=== PATIENT | female | born 1985 | race Hispanic/Latino ===

== ENCOUNTER 2022-12-05 08:09 | Inpatient (IN) | payer OTHER, SELFPAY ==
[2022-12-05] MEDS ORDERED: Electrolyte Replacement Protocol 1 EACH IVPB ONE (09:59)
[2022-12-05] MEDS ORDERED: Dextrose 5 %-0.45 % NaCl 1,000 ML IV PRN (09:59)
[2022-12-05] MEDS ORDERED: NS 0.9% w/ 20 MEQ KCL 1,000 ML IV PRN (09:59)
[2022-12-05] MEDS ORDERED: Dextrose 50% Abboject 50 ML SYRINGE SLOW IVP PRN (09:59)
[2022-12-05] MEDS ORDERED: Sodium Chloride 0.9% 1,000 ML IV PRN ×3 (09:59)
[2022-12-05] MEDS ORDERED: HUMULIN R 100 UNITS in Sodium Chloride 0.9% 100 ML IVPB SCH (10:00)
[2022-12-05 10:56] LABS: Anion Gap 21 mmol/L (10-20); BUN (Urea Nitrogen) 14 mg/dL (7.0-18.7); Calc. Creatinine Clearance 0 mL/min (70-130); Calcium 8.3 mg/dL (7.8-10.44); Chloride 107 mmol/L (98-107); Estimated GFR 60; Glucose 317 mg/dL (70-105); Magnesium 1.8 mg/dL (1.6-2.6); Sodium 133 mmol/L (136-145)
[2022-12-05 11:07] LABS: Carbon Dioxide 9 mmol/L (22-29)
[2022-12-05] MEDS ORDERED: Electrolyte Replacement Protocol FS PRN (12:00)
[2022-12-05] MEDS ORDERED: Magnesium 2 GM/50 ML(in water) 2 GM in Premix Bag 1 BAG IVPB SCH (12:00)
[2022-12-05] MEDS: Acetaminophen 325 MG TAB PO PRN ×2 (12:05→20:11)
[2022-12-05] MEDS: D5 1/2 NS w/20 mEq KCL 1,000 ML IV PRN ×3 (12:09→20:12)
[2022-12-05 12:37] LABS: Bacteria/HPF 1+ HPF (None Seen); Bilirubin Negative (Negative); Blood, Urine Trace (Negative); Clarity Clear (Clear); Glucose, Urine (Dipstick) Greater than 1000 mg/dL (Negative); Ketone, Urine Greater than 150 mg/dL (Negative); Leukocyte 25 Leu/uL (Negative); Nitrite Negative (Negative); Protein, Urine (Dipstick) 30 mg/dL (Neg-Trace); RBC/HPF 0-3 HPF (0-3); Specific Gravity, Urine 1.017 (1.002-1.036); Squamous Epithelial 0-3 HPF (0-3); Urobilinogen Normal mg/dL (Less than 2); pH, Urine 5.5 (5.0-9.0)
[2022-12-05] MEDS: Sodium Chloride 0.9% 1,000 ML IV SCH ×3 (12:41→22:26)
[2022-12-05 12:43] LABS: Amphetamine Not Detected (NotDetected); Barbiturates Screen Not Detected (NotDetected); Benzodiazepine Screen Not Detected (NotDetected); Cocaine Metabolite Screen Not Detected (NotDetected); Methadone Not Detected (NotDetected); Methamphetamine Not Detected (NotDetected); Opiate Screen Not Detected (NotDetected); Oxycodone Screen Not Detected (NotDetected); Phencyclidine (PCP) Not Detected (NotDetected); THC/Cannabinoid Screen Detected (NotDetected); Tricyclic Screen Not Detected (NotDetected)
[2022-12-05 14:55] LABS: Anion Gap 13 mmol/L (10-20); BUN (Urea Nitrogen) 10 mg/dL (7.0-18.7); Calc. Creatinine Clearance 46 mL/min (70-130); Calcium 7.6 mg/dL (7.8-10.44); Carbon Dioxide 13 mmol/L (22-29); Chloride 107 mmol/L (98-107); Estimated GFR 75; Glucose 311 mg/dL (70-105); Potassium 4.2 mmol/L (3.5-5.1); Sodium 129 mmol/L (136-145)
[2022-12-05 15:08] LABS: Phosphorus Less than 1.0 mg/dL (2.3-4.7)
[2022-12-05] MEDS ORDERED: Sodium Phosphate 30 MMOL in Sodium Chloride 0.9% 250 ML 250 ML IVPB SCH (15:15)
[2022-12-05 18:34] LABS: HIV (1/2) Antibody/Antigen Non-Reactive (NonReactive)
[2022-12-05 19:14] LABS: Anion Gap 11 mmol/L (10-20); BUN (Urea Nitrogen) 7 mg/dL (7.0-18.7); Calc. Creatinine Clearance 55 mL/min (70-130); Calcium 7.6 mg/dL (7.8-10.44); Carbon Dioxide 16 mmol/L (22-29); Chloride 106 mmol/L (98-107); Estimated GFR 92; Glucose 200 mg/dL (70-105); Potassium 3.4 mmol/L (3.5-5.1); Sodium 130 mmol/L (136-145)
[2022-12-05] MEDS: Potassium Chloride 20 MEQ in Premix Bag 1 BAG IVPB SCH ×2 (20:53→22:26)
[2022-12-05] MEDS ORDERED: Ketorolac Tromethamine 30 MG/ML VIAL IVP SCH (21:00)
[2022-12-05] MEDS ORDERED: HumaLOG 300 UNITS/3 ML VIAL SC PRN (21:51)
[2022-12-05] MEDS ORDERED: Dextrose 5% in Water 1,000 ML IV PRN (21:51)
[2022-12-05] MEDS ORDERED: Glucagon 1 MG/ML KIT IM PRN (21:51)
[2022-12-06] MEDS: Ondansetron PF 4 MG/2 ML Vial IVP PRN (01:12)
[2022-12-06] MEDS: Ketorolac Tromethamine 30 MG/ML VIAL IVP PRN ×2 (01:12→12:26)
[2022-12-06 04:58] LABS: Anion Gap 17 mmol/L (10-20); BUN (Urea Nitrogen) 5 mg/dL (7.0-18.7); Calc. Creatinine Clearance 62 mL/min (70-130); Carbon Dioxide 13 mmol/L (22-29); Chloride 105 mmol/L (98-107); Potassium 3.8 mmol/L (3.5-5.1); Sodium 131 mmol/L (136-145)
[2022-12-06 04:59] LABS: Calcium 7.3 mg/dL (7.8-10.44); Estimated GFR 107; Glucose 283 mg/dL (70-105); Lipase Less than 4 U/L (8-78)
[2022-12-06] MEDS: Sodium Chloride 0.9% 1,000 ML IV SCH ×3 (05:14→14:11)
[2022-12-06 05:38] LABS: Hemoglobin 9.3 g/dL (12.0-16.0); Mean Corpuscular HGB CONC 32.1 g/dL (32.0-36.0); Mean Corpuscular Hemoglobin 29.3 pg (27.0-31.0); Mean Corpuscular Volume 91.5 fl (78.0-98.0); Mean Platelet Volume 10.2 fL (7.4-10.4); Platelet Count 273 10x3/uL (130-400); RBC Distribution Width 13.2 % (11.5-14.5); Red Blood Cell (RBC) Count 3.17 mill/uL (4.20-5.40); White Blood Cell (WBC) Count 11.6 10x3/uL (4.8-10.8)
[2022-12-06] MEDS ORDERED: Sodium Bicarb 50 MEQ/50 ML VIAL IVP SCH (06:00)
[2022-12-06] MEDS: HumaLOG 300 UNITS/3 ML VIAL SC PRN ×3 (06:57→17:05)
[2022-12-06] MEDS ORDERED: Sodium Bicarbonate 150 MEQ in Dextrose 5% in Water 1,000 ML IV SCH (07:00)
[2022-12-06] MEDS: Insulin Glargine 30 UNITS/0.3 ML VIAL SC SCH (07:33)
[2022-12-06] MEDS ORDERED: Magnesium 2 GM/50 ML(in water) 2 GM in Premix Bag 1 BAG IVPB SCH (08:00)
[2022-12-06 08:32] LABS: Anion Gap 11 mmol/L (10-20); BUN (Urea Nitrogen) 5 mg/dL (7.0-18.7); Calc. Creatinine Clearance 66 mL/min (70-130); Calcium 7.6 mg/dL (7.8-10.44); Carbon Dioxide 16 mmol/L (22-29); Chloride 109 mmol/L (98-107); Estimated GFR 109; Glucose 182 mg/dL (70-105); Potassium 3.2 mmol/L (3.5-5.1); Sodium 133 mmol/L (136-145)
[2022-12-06] MEDS ORDERED: Pantoprazole 40 MG VIAL IVP SCH (09:00)
[2022-12-06] MEDS ORDERED: Potassium Chloride 20 MEQ TAB PO SCH (09:45)
[2022-12-06] MEDS ORDERED: Iopamidol-370 76% 500 ML MDV (1 ML CHARGE) ONE (10:31)
[2022-12-06] MEDS ORDERED: Phenylephrine 10 MG/ML VIAL ONE (14:08)
[2022-12-06] MEDS: traMADol HCl 50 MG TAB PO PRN (14:10)
[2022-12-06] MEDS ORDERED: Lorazepam 2 MG/ML VIAL ONE (17:44)
[2022-12-06] MEDS ORDERED: Lorazepam 2 MG/ML VIAL SLOW IVP SCH (17:45)
[2022-12-06] MEDS ORDERED: levETIRAcetam 500 MG/5 ML VIAL SLOW IVP SCH (18:00)
[2022-12-06] MEDS: Pregabalin 50 MG CAP PO SCH (20:09)
[2022-12-06] MEDS: Acyclovir 400 mg Tablet PO SCH (20:10)
[2022-12-06] MEDS: OXcarbazepine 300 MG TAB PO SCH (20:10)
[2022-12-07] MEDS: Sodium Chloride 0.9% 1,000 ML IV SCH ×3 (05:15→14:16)
[2022-12-07] MEDS: HumaLOG 300 UNITS/3 ML VIAL SC PRN ×2 (06:02→12:25)
[2022-12-07 06:20] LABS: #Eosinphils 0.1 thou/uL (0.0-0.7); #Neutrophils 4.4 thou/uL (1.40-6.50); %Basophils 0.6 % (0.0-1.0); %Eosinophils 2.1 % (0.0-10.0); %Lymphocytes 15.4 % (21.0-51.0); %Monocytes 14.9 % (0.0-10.0); %Neutrophils 66.1 % (42.0-75.0); Hematocrit 26.9 % (36.0-47.0); Hemoglobin 8.7 g/dL (12.0-16.0); Mean Corpuscular HGB CONC 32.3 g/dL (32.0-36.0); Mean Corpuscular Hemoglobin 29.3 pg (27.0-31.0); Mean Corpuscular Volume 90.6 fl (78.0-98.0); Mean Platelet Volume 10.1 fL (7.4-10.4); Platelet Count 263 10x3/uL (130-400); RBC Distribution Width 13.2 % (11.5-14.5); Red Blood Cell (RBC) Count 2.97 mill/uL (4.20-5.40); White Blood Cell (WBC) Count 6.7 10x3/uL (4.8-10.8)
[2022-12-07 06:54] LABS: ALT (SGPT) 52 U/L (8-55); AST (SGOT) 82 U/L (5-34); Albumin 2.6 g/dL (3.5-5.0); Alkaline Phosphatase 197 U/L (40-110); Anion Gap 9 mmol/L (10-20); BUN (Urea Nitrogen) 5 mg/dL (7.0-18.7); Bilirubin, Total Less than 0.2 mg/dL (0.2-1.2); Calc. Creatinine Clearance 92 mL/min (70-130); Calcium 7.2 mg/dL (7.8-10.44); Carbon Dioxide 22 mmol/L (22-29); Chloride 106 mmol/L (98-107); Estimated GFR 123; Globulin 2.8 g/dL (2.4-3.5); Glucose 195 mg/dL (70-105); Magnesium 2.3 mg/dL (1.6-2.6); Potassium 3.3 mmol/L (3.5-5.1); Protein, Total 5.4 g/dL (6.0-8.3); Sodium 134 mmol/L (136-145)
[2022-12-07 07:02] LABS: Phosphorus Less than 1.0 mg/dL (2.3-4.7)
[2022-12-07] MEDS: Pancrelipase DR 12,000 1 CAP PO SCH ×3 (07:53→17:05)
[2022-12-07] MEDS: FLUoxetine HCl 20 MG CAP PO SCH (07:53)
[2022-12-07] MEDS: Pregabalin 50 MG CAP PO SCH ×2 (07:53→20:44)
[2022-12-07] MEDS: Insulin Glargine 30 UNITS/0.3 ML VIAL SC SCH ×2 (07:54→20:45)
[2022-12-07] MEDS: Acyclovir 400 mg Tablet PO SCH ×2 (07:54→20:45)
[2022-12-07] MEDS: OXcarbazepine 300 MG TAB PO SCH ×2 (07:54→20:45)
[2022-12-07] MEDS ORDERED: Potassium Chloride 20 MEQ TAB PO SCH (08:00)
[2022-12-07] MEDS ORDERED: levETIRAcetam 500 MG/5 ML VIAL SLOW IVP SCH (09:00)
[2022-12-07] MEDS ORDERED: Iopamidol-370 76% 500 ML MDV (1 ML CHARGE) ONE (09:00)
[2022-12-07] MEDS ORDERED: K-Phos Neutral 250 MG TAB PO SCH (09:15)
[2022-12-07] MEDS: traMADol HCl 50 MG TAB PO PRN (09:20)
[2022-12-07] MEDS ORDERED: LevoFLOXacin 500 MG TAB PO SCH ×2 (10:30→10:45)
[2022-12-07] MEDS: K-Phos Neutral 250 MG TAB PO SCH ×2 (11:57→17:05)
[2022-12-07] MEDS: levETIRAcetam 500 MG TAB PO SCH (20:44)
[2022-12-07] MEDS ORDERED: Non-Formulary Item 1 EACH (Levetiracetam [Keppra] 1,000 MG Tablet) PO SCH (21:00)
[2022-12-08 04:41] LABS: ALT (SGPT) 79 U/L (8-55); AST (SGOT) 111 U/L (5-34); Albumin 2.6 g/dL (3.5-5.0); Alkaline Phosphatase 258 U/L (40-110); Anion Gap 11 mmol/L (10-20); BUN (Urea Nitrogen) 5 mg/dL (7.0-18.7); Bilirubin, Total 0.2 mg/dL (0.2-1.2); Calc. Creatinine Clearance 100 mL/min (70-130); Calcium 7.4 mg/dL (7.8-10.44); Carbon Dioxide 24 mmol/L (22-29); Chloride 104 mmol/L (98-107); Estimated GFR 126; Globulin 2.7 g/dL (2.4-3.5); Glucose 139 mg/dL (70-105); Phosphorus 1.8 mg/dL (2.3-4.7); Potassium 3.2 mmol/L (3.5-5.1); Protein, Total 5.3 g/dL (6.0-8.3); Sodium 136 mmol/L (136-145)
[2022-12-08] MEDS: Sodium Chloride 0.9% 1,000 ML IV SCH ×2 (05:33→08:17)
[2022-12-08] MEDS: LevoFLOXacin 500 MG TAB PO SCH (05:33)
[2022-12-08] MEDS: Acetaminophen 325 MG TAB PO PRN ×2 (06:27→20:36)
[2022-12-08] MEDS ORDERED: Potassium Bicarbonate/Cit Ac 20 MEQ TAB PO SCH (08:00)
[2022-12-08] MEDS: Acyclovir 400 mg Tablet PO SCH ×2 (08:17→20:35)
[2022-12-08] MEDS: K-Phos Neutral 250 MG TAB PO SCH ×3 (08:17→16:01)
[2022-12-08] MEDS: Pregabalin 50 MG CAP PO SCH ×2 (08:17→20:36)
[2022-12-08] MEDS: levETIRAcetam 500 MG TAB PO SCH ×2 (08:17→20:35)
[2022-12-08] MEDS: Insulin Glargine 30 UNITS/0.3 ML VIAL SC SCH ×2 (08:17→20:39)
[2022-12-08] MEDS: FLUoxetine HCl 20 MG CAP PO SCH (08:18)
[2022-12-08] MEDS: Pancrelipase DR 12,000 1 CAP PO SCH ×3 (08:18→16:05)
[2022-12-08] MEDS: OXcarbazepine 300 MG TAB PO SCH ×2 (08:43→20:35)
[2022-12-08] MEDS: traMADol HCl 50 MG TAB PO PRN (12:15)
[2022-12-08] MEDS: HumaLOG 300 UNITS/3 ML VIAL SC PRN (12:16)
[2022-12-08] MEDS ORDERED: Potassium Phosphate 15 MMOL in Sodium Chloride 0.9% 100 ML IVPB SCH (13:30)
[2022-12-08] MEDS ORDERED: Diphenoxylate HCl/Atropine Tablet PO PRN (14:40)
[2022-12-08] MEDS ORDERED: Diphenoxylate HCl/Atropine Tablet PO SCH (14:45)
[2022-12-08 17:38] LABS: Bacteria/HPF None Seen HPF (None Seen); Bilirubin Negative (Negative); Blood, Urine Trace (Negative); CAUTI Indications for Culture Dysuria,urgency,freq; Clarity Clear (Clear); Glucose, Urine (Dipstick) 300 mg/dL (Negative); Ketone, Urine Negative (Negative); Leukocyte 75 Leu/uL (Negative); Nitrite Negative (Negative); Protein, Urine (Dipstick) Negative (Neg-Trace); RBC/HPF 0-3 HPF (0-3); Specific Gravity, Urine 1.012 (1.002-1.036); Squamous Epithelial 0-3 HPF (0-3); Transitional Epithelial 0-3 HPF (None Seen)
[2022-12-08 17:39] LABS: Urine Culture Reflex No No
[2022-12-08] MEDS: Ondansetron PF 4 MG/2 ML Vial IVP PRN (19:30)
[2022-12-08] MEDS ORDERED: Metoclopramide HCl 10 MG/2 ML VIAL IVP SCH (22:45)
[2022-12-08] MEDS: Ketorolac Tromethamine 30 MG/ML VIAL IVP SCH (23:50)
[2022-12-09 04:47] LABS: #Eosinphils 0.2 thou/uL (0.0-0.7); #Monocytes 0.8 thou/uL (0.11-0.59); #Neutrophils 4.2 thou/uL (1.40-6.50); %Basophils 0.5 % (0.0-1.0); %Eosinophils 2.4 % (0.0-10.0); %Lymphocytes 20.5 % (21.0-51.0); %Monocytes 12.7 % (0.0-10.0); %Neutrophils 63.4 % (42.0-75.0); Hematocrit 26.3 % (36.0-47.0); Hemoglobin 8.4 g/dL (12.0-16.0); Mean Corpuscular HGB CONC 31.9 g/dL (32.0-36.0); Mean Corpuscular Hemoglobin 28.7 pg (27.0-31.0); Mean Corpuscular Volume 89.8 fl (78.0-98.0); Platelet Count 277 10x3/uL (130-400); RBC Distribution Width 13.2 % (11.5-14.5); Red Blood Cell (RBC) Count 2.93 mill/uL (4.20-5.40); White Blood Cell (WBC) Count 6.6 10x3/uL (4.8-10.8)
[2022-12-09] MEDS: Sodium Chloride 0.9% 1,000 ML IV SCH ×2 (04:52→12:00)
[2022-12-09] MEDS: LevoFLOXacin 500 MG TAB PO SCH (05:22)
[2022-12-09 06:33] LABS: Anion Gap 9 mmol/L (10-20); BUN (Urea Nitrogen) 5 mg/dL (7.0-18.7); Calc. Creatinine Clearance 99 mL/min (70-130); Calcium 7.9 mg/dL (7.8-10.44); Carbon Dioxide 28 mmol/L (22-29); Chloride 103 mmol/L (98-107); Estimated GFR 122; Glucose 73 mg/dL (70-105); Phosphorus 3.5 mg/dL (2.3-4.7); Potassium 3.1 mmol/L (3.5-5.1); Sodium 137 mmol/L (136-145)
[2022-12-09] MEDS: Pregabalin 50 MG CAP PO SCH (07:51)
[2022-12-09] MEDS: levETIRAcetam 500 MG TAB PO SCH (07:51)
[2022-12-09] MEDS: FLUoxetine HCl 20 MG CAP PO SCH (07:51)
[2022-12-09] MEDS: OXcarbazepine 300 MG TAB PO SCH (07:52)
[2022-12-09] MEDS: Pancrelipase DR 12,000 1 CAP PO SCH ×3 (07:52→16:19)
[2022-12-09] MEDS: K-Phos Neutral 250 MG TAB PO SCH ×3 (07:52→16:40)
[2022-12-09] MEDS: Acyclovir 400 mg Tablet PO SCH (07:52)
[2022-12-09] MEDS: Insulin Glargine 30 UNITS/0.3 ML VIAL SC SCH ×2 (07:53→21:42)
[2022-12-09] MEDS ORDERED: Potassium Chloride 20 MEQ TAB PO SCH (08:00)
[2022-12-09] MEDS: HumaLOG 300 UNITS/3 ML VIAL SC PRN ×2 (11:57→16:40)
[2022-12-09] MEDS: Acetaminophen 325 MG TAB PO PRN (11:57)
[2022-12-09] MEDS ORDERED: Piperacillin/Tazobactam 3.375 GM in Sodium Chloride 0.9% 100 ML IVPB SCH (12:00)
[2022-12-09] MEDS: Piperacillin/Tazobactam 3.375 GM in Sodium Chloride 0.9% 100 ML IVPB SCH (16:19)
[2022-12-09] MEDS: Lorazepam 2 MG/ML VIAL ONE ×2 (20:15→21:47)
[2022-12-09] MEDS ORDERED: levETIRAcetam 500 MG/5 ML VIAL SLOW IVP SCH (20:15)
[2022-12-09] MEDS ORDERED: Propofol 1,000 MG/100 ML VIAL IV ONE (20:45)
[2022-12-09] MEDS ORDERED: levETIRAcetam 500 MG TAB PER TUBE SCH (21:00)
[2022-12-09 21:37] LABS: Actual Bicarbonate (HCO3a) 28.2 mEq/L (22-28); Base Excess (BEa) 4.4 mEq/L (-2.0 to +3.0); Calcium, Ionized (arterial) 1.07 mmol/L (1.12-1.30); Carboxyhemoglobin (COHb) 0.2 gm% (0.0-3.0); Hematocrit-ABG 29 % (36.0-47.0); O2 Tension (PaO2), arterial 142.7 mmHg (80.0-100.0); Potassium - ABG Lab 4.24 mmol/L (3.70-5.30); pH, Arterial 7.477 (7.35-7.45)
[2022-12-09 21:43] LABS: Puncture Site RBR
[2022-12-09] MEDS: Lorazepam 2 MG/ML VIAL SLOW IVP PRN (22:37)
[2022-12-09 23:03] LABS: BHCG - Serum Negative (NEGATIVE); Pregs Control Background? CLEAR/WHITE (CLR/WHITE); Pregs Control Bar Appear? YES (CONTROL BAR)
[2022-12-09 23:34] LABS: #Eosinphils 0.1 thou/uL (0.0-0.7); #Monocytes 0.6 thou/uL (0.11-0.59); #Neutrophils 6.1 thou/uL (1.40-6.50); %Basophils 0.3 % (0.0-1.0); %Eosinophils 0.9 % (0.0-10.0); %Lymphocytes 9.1 % (21.0-51.0); %Monocytes 7.3 % (0.0-10.0); %Neutrophils 81.2 % (42.0-75.0); ALT (SGPT) 110 U/L (8-55); AST (SGOT) 93 U/L (5-34); Alkaline Phosphatase 330 U/L (40-110); Anion Gap 14 mmol/L (10-20); BUN (Urea Nitrogen) 6 mg/dL (7.0-18.7); Bilirubin, Total 0.3 mg/dL (0.2-1.2); CK (CPK) 14 U/L (29-168); Calc. Creatinine Clearance 90 mL/min (70-130); Calcium 8.1 mg/dL (7.8-10.44); Carbon Dioxide 24 mmol/L (22-29); Chloride 100 mmol/L (98-107); Estimated GFR 119; Glucose 216 mg/dL (70-105); Hematocrit 26.6 % (36.0-47.0); Hemoglobin 8.7 g/dL (12.0-16.0); Lactic Acid 0.9 mmol/L (0.5-2.2); Magnesium 1.8 mg/dL (1.6-2.6); Mean Corpuscular HGB CONC 32.7 g/dL (32.0-36.0); Mean Corpuscular Hemoglobin 29.2 pg (27.0-31.0); Mean Corpuscular Volume 89.3 fl (78.0-98.0); Mean Platelet Volume 10.1 fL (7.4-10.4); Platelet Count 347 10x3/uL (130-400); Potassium 4.1 mmol/L (3.5-5.1); Protein, Total 5.9 g/dL (6.0-8.3); RBC Distribution Width 13.5 % (11.5-14.5); Red Blood Cell (RBC) Count 2.98 mill/uL (4.20-5.40); Sodium 134 mmol/L (136-145); White Blood Cell (WBC) Count 7.5 10x3/uL (4.8-10.8)
[2022-12-09] MEDS: Ketorolac Tromethamine 30 MG/ML VIAL IVP SCH (23:45)
[2022-12-09 23:52] LABS: Albumin 2.7 g/dL (3.5-5.0); Globulin 3.3 g/dL (2.4-3.5)
[2022-12-10] MEDS: OXcarbazepine 300 MG TAB PO SCH
[2022-12-10] MEDS: Pregabalin 50 MG CAP PO SCH ×3 (00:02→21:29)
[2022-12-10] MEDS: Acyclovir 400 mg Tablet PO SCH ×3 (00:03→21:23)
[2022-12-10] MEDS: Sodium Chloride 0.9% 1,000 ML IV SCH ×4 (00:42→23:52)
[2022-12-10] MEDS: Piperacillin/Tazobactam 3.375 GM in Sodium Chloride 0.9% 100 ML IVPB SCH ×4 (00:43→23:42)
[2022-12-10] MEDS ORDERED: Magnesium 2 GM/50 ML(in water) 2 GM in Premix Bag 1 BAG IVPB SCH (02:00)
[2022-12-10] MEDS: levETIRAcetam 500 MG TAB PO SCH (03:17)
[2022-12-10] MEDS: Lorazepam 2 MG/ML VIAL SLOW IVP PRN (03:43)
[2022-12-10] MEDS ORDERED: Rocuronium Bromide 10 MG/ML (10ML VIAL) ONE (04:10)
[2022-12-10] MEDS ORDERED: Lorazepam 2 MG/ML VIAL SLOW IVP PRN (05:00)
[2022-12-10] MEDS ORDERED: DISCONTINUE PREVIOUS NARCOTIC PAIN MEDICATIONS AND BENZODIAZEPINES FS SCH (05:00)
[2022-12-10] MEDS ORDERED: Fentanyl BOLUS 250 ML IVPB PRN (05:00)
[2022-12-10] MEDS ORDERED: Morphine 2 MG/ML VIAL SLOW IVP PRN (05:00)
[2022-12-10] MEDS ORDERED: Propofol BOLUS 1,000 MG/100 ML VIAL IV PRN (05:00)
[2022-12-10] MEDS ORDERED: Fentanyl CADD 100 ML IV SCH (05:00)
[2022-12-10] MEDS: Propofol 1,000 MG/100 ML VIAL IV PRN (05:13)
[2022-12-10] MEDS: HumaLOG 300 UNITS/3 ML VIAL SC PRN (05:18)
[2022-12-10 06:43] LABS: #Basophils 0.1 thou/uL (0.0-0.2); #Eosinphils 0.1 thou/uL (0.0-0.7); #Monocytes 0.8 thou/uL (0.11-0.59); #Neutrophils 4.5 thou/uL (1.40-6.50); %Basophils 0.9 % (0.0-1.0); %Eosinophils 1.4 % (0.0-10.0); %Lymphocytes 15.4 % (21.0-51.0); %Neutrophils 69.7 % (42.0-75.0); Hematocrit 27.2 % (36.0-47.0); Hemoglobin 8.4 g/dL (12.0-16.0); Mean Corpuscular HGB CONC 30.9 g/dL (32.0-36.0); Mean Corpuscular Hemoglobin 28.8 pg (27.0-31.0); Mean Platelet Volume 10.1 fL (7.4-10.4); Platelet Count 319 10x3/uL (130-400); RBC Distribution Width 13.6 % (11.5-14.5); Red Blood Cell (RBC) Count 2.92 mill/uL (4.20-5.40); White Blood Cell (WBC) Count 6.4 10x3/uL (4.8-10.8)
[2022-12-10] MEDS ORDERED: Furosemide 20 MG/2 ML VIAL SLOW IVP SCH (07:00)
[2022-12-10 07:02] LABS: Mean Corpuscular Volume 93.2 fl (78.0-98.0)
[2022-12-10 07:07] LABS: Anion Gap 13 mmol/L (10-20); BUN (Urea Nitrogen) 5 mg/dL (7.0-18.7); Calc. Creatinine Clearance 94 mL/min (70-130); Calcium 7.9 mg/dL (7.8-10.44); Carbon Dioxide 25 mmol/L (22-29); Chloride 103 mmol/L (98-107); Estimated GFR 121; Glucose 146 mg/dL (70-105); Potassium 3.5 mmol/L (3.5-5.1); Sodium 137 mmol/L (136-145)
[2022-12-10] MEDS ORDERED: Rocuronium Bromide 10 MG/ML (10ML VIAL) IVP SCH (07:30)
[2022-12-10] MEDS ORDERED: Potassium Chloride 20 MEQ TAB PO SCH (08:00)
[2022-12-10 08:06] LABS: Actual Bicarbonate (HCO3a) 26.5 mEq/L (22-28); Calcium, Ionized (arterial) 1.07 mmol/L (1.12-1.30); Carboxyhemoglobin (COHb) 0.2 gm% (0.0-3.0); Hematocrit-ABG 28 % (36.0-47.0); Hemoglobin (Hb) 9.4 g/dL (12.0-16.0); O2 Tension (PaO2), arterial 122.9 mmHg (80.0-100.0); Potassium - ABG Lab 3.37 mmol/L (3.70-5.30); pH, Arterial 7.484 (7.35-7.45)
[2022-12-10 08:07] LABS: Puncture Site LRA
[2022-12-10 08:28] LABS: Magnesium 2.5 mg/dL (1.6-2.6); Phosphorus 3.1 mg/dL (2.3-4.7)
[2022-12-10] MEDS: Pancrelipase DR 12,000 1 CAP PO SCH ×3 (08:44→16:33)
[2022-12-10] MEDS: FLUoxetine HCl 20 MG CAP PO SCH (08:44)
[2022-12-10] MEDS: levETIRAcetam 500 mg/5 ml Oral Solution PER TUBE SCH ×2 (08:45→21:21)
[2022-12-10] MEDS ORDERED: Potassium Chloride 40 MEQ in Sodium Chloride 0.9% 250 ML 250 ML IVPB SCH (11:45)
[2022-12-10] MEDS: OXcarbazepine 300 MG/5 ML UDCUP PER TUBE SCH ×2 (12:10→21:42)
[2022-12-10] MEDS: Potassium Chloride 20 MEQ in Premix Bag 1 BAG IVPB SCH ×2 (12:23→15:48)
[2022-12-10] MEDS: Ketorolac Tromethamine 30 MG/ML VIAL IVP SCH (23:20)
[2022-12-11 03:53] LABS: #Basophils 0.1 thou/uL (0.0-0.2); #Eosinphils 0.2 thou/uL (0.0-0.7); #Monocytes 1.1 thou/uL (0.11-0.59); #Neutrophils 5.1 thou/uL (1.40-6.50); %Basophils 0.6 % (0.0-1.0); %Eosinophils 2.8 % (0.0-10.0); %Lymphocytes 15.8 % (21.0-51.0); %Monocytes 14.5 % (0.0-10.0); %Neutrophils 65.8 % (42.0-75.0); Hemoglobin 8.5 g/dL (12.0-16.0); Mean Corpuscular HGB CONC 31.5 g/dL (32.0-36.0); Mean Corpuscular Hemoglobin 28.7 pg (27.0-31.0); Mean Corpuscular Volume 91.2 fl (78.0-98.0); Mean Platelet Volume 9.9 fL (7.4-10.4); Platelet Count 371 10x3/uL (130-400); RBC Distribution Width 13.6 % (11.5-14.5); Red Blood Cell (RBC) Count 2.96 mill/uL (4.20-5.40); White Blood Cell (WBC) Count 7.7 10x3/uL (4.8-10.8)
[2022-12-11 04:21] LABS: ALT (SGPT) 103 U/L (8-55); AST (SGOT) 82 U/L (5-34); Albumin 2.5 g/dL (3.5-5.0); Alkaline Phosphatase 369 U/L (40-110); Anion Gap 12 mmol/L (10-20); BUN (Urea Nitrogen) 8 mg/dL (7.0-18.7); Bilirubin, Total 0.5 mg/dL (0.2-1.2); Calc. Creatinine Clearance 94 mL/min (70-130); Calcium 8.1 mg/dL (7.8-10.44); Carbon Dioxide 25 mmol/L (22-29); Chloride 103 mmol/L (98-107); Estimated GFR 121; Globulin 3.2 g/dL (2.4-3.5); Glucose 111 mg/dL (70-105); Potassium 4.2 mmol/L (3.5-5.1); Protein, Total 5.7 g/dL (6.0-8.3); Sodium 136 mmol/L (136-145)
[2022-12-11] MEDS: Propofol 1,000 MG/100 ML VIAL IV PRN (06:43)
[2022-12-11] MEDS: Sodium Chloride 0.9% 1,000 ML IV SCH ×2 (08:20→21:11)
[2022-12-11] MEDS: Piperacillin/Tazobactam 3.375 GM in Sodium Chloride 0.9% 100 ML IVPB SCH ×2 (08:22→16:50)
[2022-12-11] MEDS: Pancrelipase DR 12,000 1 CAP PO SCH ×2 (08:22→13:31)
[2022-12-11] MEDS: Acyclovir 400 mg Tablet PO SCH ×2 (08:25→21:11)
[2022-12-11] MEDS: FLUoxetine HCl 20 MG CAP PO SCH (09:57)
[2022-12-11] MEDS: OXcarbazepine 300 MG/5 ML UDCUP PER TUBE SCH ×2 (09:58→21:09)
[2022-12-11] MEDS: levETIRAcetam 500 mg/5 ml Oral Solution PER TUBE SCH ×2 (09:59→21:10)
[2022-12-11] MEDS: Pregabalin 50 MG CAP PO SCH ×2 (10:03→21:10)
[2022-12-11 13:51] LABS: Actual Bicarbonate (HCO3a) 23.4 mEq/L (22-28); Base Excess (BEa) -0.2 mEq/L (-2.0 to +3.0); CO2 Tension 33.8 mmHg (35.0-45.0); Calcium, Ionized (arterial) 1.11 mmol/L (1.12-1.30); Carboxyhemoglobin (COHb) 0.5 gm% (0.0-3.0); Hematocrit-ABG 25 % (36.0-47.0); Hemoglobin (Hb) 8.6 g/dL (12.0-16.0); O2 Tension (PaO2), arterial 89.2 mmHg (80.0-100.0); Potassium - ABG Lab 4.09 mmol/L (3.70-5.30); pH, Arterial 7.458 (7.35-7.45)
[2022-12-11 14:02] LABS: Puncture Site LRA
[2022-12-11] MEDS: K-Phos Neutral 250 MG TAB PO SCH (19:47)
[2022-12-11] MEDS: Acetaminophen 325 MG TAB PO PRN (21:09)
[2022-12-11] MEDS: Ondansetron PF 4 MG/2 ML Vial IVP PRN (21:09)
[2022-12-11] MEDS: SUMAtriptan Succinate 6 MG/0.5 ML VIAL SC PRN (21:31)
[2022-12-12] MEDS: Piperacillin/Tazobactam 3.375 GM in Sodium Chloride 0.9% 100 ML IVPB SCH ×4 (00:32→23:16)
[2022-12-12] MEDS: Sodium Chloride 0.9% 1,000 ML IV SCH (00:36)
[2022-12-12] MEDS: HumaLOG 300 UNITS/3 ML VIAL SC PRN ×2 (00:37→05:58)
[2022-12-12] MEDS ORDERED: diphenhydrAMINE 50 MG/ML VIAL IVP SCH (02:15)
[2022-12-12 04:13] LABS: Hematocrit 25.1 % (36.0-47.0); Hemoglobin 7.8 g/dL (12.0-16.0); Mean Corpuscular HGB CONC 31.1 g/dL (32.0-36.0); Mean Corpuscular Hemoglobin 28.5 pg (27.0-31.0); Mean Corpuscular Volume 91.6 fl (78.0-98.0); Mean Platelet Volume 9.5 fL (7.4-10.4); Platelet Count 436 10x3/uL (130-400); RBC Distribution Width 13.1 % (11.5-14.5); Red Blood Cell (RBC) Count 2.74 mill/uL (4.20-5.40); White Blood Cell (WBC) Count 6.4 10x3/uL (4.8-10.8)
[2022-12-12 04:36] LABS: Anion Gap 9 mmol/L (10-20); BUN (Urea Nitrogen) 6 mg/dL (7.0-18.7); Calc. Creatinine Clearance 92 mL/min (70-130); Calcium 8.1 mg/dL (7.8-10.44); Carbon Dioxide 28 mmol/L (22-29); Chloride 100 mmol/L (98-107); Estimated GFR 121; Glucose 206 mg/dL (70-105); Potassium 3.9 mmol/L (3.5-5.1); Sodium 133 mmol/L (136-145)
[2022-12-12] MEDS ORDERED: levETIRAcetam 500 MG TAB PO SCH (09:15)
[2022-12-12] MEDS ORDERED: OXcarbazepine 300 MG TAB PO SCH (09:30)
[2022-12-12 09:31] VITALS: BMI 17.3
[2022-12-12] MEDS: FLUoxetine HCl 20 MG CAP PO SCH (09:38)
[2022-12-12] MEDS: Acyclovir 400 mg Tablet PO SCH ×2 (09:38→21:15)
[2022-12-12] MEDS: Pregabalin 50 MG CAP PO SCH ×2 (09:41→20:33)
[2022-12-12] MEDS ORDERED: Pancrelipase DR 12,000 1 CAP PO SCH (15:00)
[2022-12-12 15:35] LABS: Hematocrit 27.4 % (36.0-47.0); Hemoglobin 8.5 g/dL (12.0-16.0)
[2022-12-12] MEDS: Pancrelipase DR 12,000 1 CAP PO SCH (16:24)
[2022-12-12] MEDS: levETIRAcetam 500 mg/5 ml Oral Solution PER TUBE SCH (16:26)
[2022-12-12] MEDS: OXcarbazepine 300 MG/5 ML UDCUP PER TUBE SCH (16:27)
[2022-12-12 16:49] LABS: Hematocrit 26.9 % (36.0-47.0); Hemoglobin 8.4 g/dL (12.0-16.0)
[2022-12-12] MEDS: Acetaminophen 325 MG TAB PO PRN ×3 (17:31→23:18)
[2022-12-12] MEDS: Ondansetron PF 4 MG/2 ML Vial IVP PRN (17:45)
[2022-12-12] MEDS: levETIRAcetam 500 MG TAB PO SCH (20:33)
[2022-12-12] MEDS: OXcarbazepine 300 MG TAB PO SCH (20:34)
[2022-12-13] MEDS ORDERED: HumaLOG 300 UNITS/3 ML VIAL SC PRN (00:48)
[2022-12-13] MEDS ORDERED: Insulin Glargine 30 UNITS/0.3 ML VIAL SC SCH (01:00)
[2022-12-13] MEDS: SUMAtriptan Succinate 6 MG/0.5 ML VIAL SC PRN (01:03)
[2022-12-13 05:33] LABS: Hematocrit 25.6 % (36.0-47.0); Mean Corpuscular HGB CONC 31.3 g/dL (32.0-36.0); Mean Corpuscular Hemoglobin 28.6 pg (27.0-31.0); Mean Corpuscular Volume 91.4 fl (78.0-98.0); Mean Platelet Volume 9.2 fL (7.4-10.4); Platelet Count 506 10x3/uL (130-400); RBC Distribution Width 12.9 % (11.5-14.5); White Blood Cell (WBC) Count 6.2 10x3/uL (4.8-10.8)
[2022-12-13 05:56] LABS: Anion Gap 10 mmol/L (10-20); BUN (Urea Nitrogen) 8 mg/dL (7.0-18.7); Calc. Creatinine Clearance 80 mL/min (70-130); Calcium 8.2 mg/dL (7.8-10.44); Carbon Dioxide 29 mmol/L (22-29); Chloride 98 mmol/L (98-107); Estimated GFR 117; Glucose 277 mg/dL (70-105); Potassium 4.1 mmol/L (3.5-5.1); Sodium 133 mmol/L (136-145)
[2022-12-13] MEDS: HumaLOG 300 UNITS/3 ML VIAL SC PRN ×2 (06:06→18:40)
[2022-12-13] MEDS: Piperacillin/Tazobactam 3.375 GM in Sodium Chloride 0.9% 100 ML IVPB SCH ×3 (09:32→22:00)
[2022-12-13] MEDS: Ondansetron PF 4 MG/2 ML Vial IVP PRN ×2 (09:33→16:11)
[2022-12-13] MEDS: Pregabalin 50 MG CAP PO SCH ×2 (09:35→21:17)
[2022-12-13] MEDS: levETIRAcetam 500 MG TAB PO SCH ×2 (09:35→21:15)
[2022-12-13] MEDS: OXcarbazepine 300 MG TAB PO SCH ×2 (09:36→21:16)
[2022-12-13] MEDS: FLUoxetine HCl 20 MG CAP PO SCH (09:36)
[2022-12-13] MEDS: Acetaminophen 325 MG TAB PO PRN (09:37)
[2022-12-13] MEDS: Acyclovir 400 mg Tablet PO SCH ×2 (10:13→21:12)
[2022-12-13] MEDS: Pancrelipase DR 12,000 1 CAP PO SCH ×3 (10:13→17:15)
[2022-12-13] MEDS ORDERED: SUMAtriptan Succinate 25 MG TAB PO PRN (11:03)
[2022-12-13] MEDS ORDERED: SUMAtriptan Succinate 25 MG TAB PO SCH (11:15)
[2022-12-13] MEDS: Aspirin/APAP/Caffeine Tab (Excedrin Migraine) PO PRN ×2 (12:12→18:43)
[2022-12-13] MEDS ORDERED: Sodium Chloride 0.9% 1,000 ML IV SCH (15:30)
[2022-12-13] MEDS: Sodium Chloride 0.9% 1,000 ML IV SCH (16:10)
[2022-12-13 17:59] LABS: Hemoglobin A1c 13.5 % (4.0-6.0)
[2022-12-13] MEDS: Cholestyramine/Aspartame 4 gm Packet PO SCH (21:13)
[2022-12-13] MEDS: Insulin Glargine 30 UNITS/0.3 ML VIAL SC SCH (21:46)
[2022-12-14] MEDS: Sodium Chloride 0.9% 1,000 ML IV SCH ×3 (03:00→09:34)
[2022-12-14] MEDS: OXcarbazepine 300 MG TAB PO SCH ×2 (09:09→20:40)
[2022-12-14] MEDS: Pancrelipase DR 12,000 1 CAP PO SCH ×3 (09:09→18:39)
[2022-12-14] MEDS: FLUoxetine HCl 20 MG CAP PO SCH (09:09)
[2022-12-14] MEDS: levETIRAcetam 500 MG TAB PO SCH (09:10)
[2022-12-14] MEDS: Pregabalin 50 MG CAP PO SCH ×2 (09:10→20:40)
[2022-12-14] MEDS: Cholestyramine/Aspartame 4 gm Packet PO SCH ×4 (09:11→20:39)
[2022-12-14] MEDS: Piperacillin/Tazobactam 3.375 GM in Sodium Chloride 0.9% 100 ML IVPB SCH (09:11)
[2022-12-14] MEDS: Acyclovir 400 mg Tablet PO SCH ×2 (09:11→20:40)
[2022-12-14] MEDS: Aspirin/APAP/Caffeine Tab (Excedrin Migraine) PO PRN (09:16)
[2022-12-14] MEDS: Lorazepam 2 MG/ML VIAL ONE (10:45)
[2022-12-14] MEDS ORDERED: levETIRAcetam 500 MG/5 ML VIAL SLOW IVP SCH (11:00)
[2022-12-14] MEDS ORDERED: Lorazepam 2 MG/ML VIAL SLOW IVP SCH (11:00)
[2022-12-14 11:12] LABS: Acetaminophen Less than 10 mcg/mL (10.0-30.0); Alcohol Less than 10.0 mg/dL (Less than 10); Salicylate Less than 8.0 mg/dL (15.0-30.0)
[2022-12-14 11:15] LABS: Anion Gap 17 mmol/L (10-20); BUN (Urea Nitrogen) 8 mg/dL (7.0-18.7); Calc. Creatinine Clearance 75 mL/min (70-130); Calcium 8.8 mg/dL (7.8-10.44); Carbon Dioxide 23 mmol/L (22-29); Chloride 97 mmol/L (98-107); Estimated GFR 115; Glucose 266 mg/dL (70-105); Magnesium 1.9 mg/dL (1.6-2.6); Potassium 3.9 mmol/L (3.5-5.1); Sodium 133 mmol/L (136-145)
[2022-12-14] MEDS: HumaLOG 300 UNITS/3 ML VIAL SC PRN (11:29)
[2022-12-14] MEDS ORDERED: Magnesium 2 GM/50 ML(in water) 2 GM in Premix Bag 1 BAG IVPB SCH (14:15)
[2022-12-14] MEDS ORDERED: Dronabinol 2.5 MG CAP PO SCH (16:30)
[2022-12-14 20:06] VITALS: BP 95/58
[2022-12-14] MEDS: Acetaminophen 325 MG TAB PO PRN (20:39)
[2022-12-14] MEDS: Insulin Glargine 30 UNITS/0.3 ML VIAL SC SCH (20:41)
[2022-12-14] MEDS ORDERED: levETIRAcetam 500 MG TAB PO SCH (21:00)
[2022-12-14] MEDS ORDERED: Rocuronium Bromide 10 MG/ML (10ML VIAL) ONE (23:57)
[2022-12-15] MEDS: Lorazepam 2 MG/ML VIAL ONE (00:07)
[2022-12-15] MEDS ORDERED: Lorazepam 2 MG/ML VIAL SLOW IVP SCH (00:15)
[2022-12-15] MEDS ORDERED: Lorazepam 2 MG/ML VIAL ONE (00:21)
[2022-12-15] MEDS ORDERED: Ventilator Sedation Protocol 1 EACH FS ONE (00:34)
[2022-12-15] MEDS ORDERED: Propofol 1,000 MG/100 ML VIAL IV PRN (00:45)
[2022-12-15] MEDS ORDERED: Fentanyl CADD 100 ML IV SCH (00:45)
[2022-12-15] MEDS ORDERED: Lorazepam 2 MG/ML VIAL SLOW IVP PRN (00:45)
[2022-12-15] MEDS ORDERED: Fentanyl BOLUS 250 ML IVPB PRN (00:45)
[2022-12-15] MEDS ORDERED: Propofol BOLUS 1,000 MG/100 ML VIAL IV PRN (00:45)
[2022-12-15] MEDS ORDERED: DISCONTINUE PREVIOUS NARCOTIC PAIN MEDICATIONS AND BENZODIAZEPINES FS SCH (00:45)
[2022-12-15 01:00] LABS: Actual Bicarbonate (HCO3a) 27.8 mEq/L (22-28); Base Excess (BEa) 5.2 mEq/L (-2.0 to +3.0); CO2 Tension 33.9 mmHg (35.0-45.0); Calcium, Ionized (arterial) 1.13 mmol/L (1.12-1.30); Carboxyhemoglobin (COHb) 0.2 gm% (0.0-3.0); Hematocrit-ABG 34 % (36.0-47.0); Hemoglobin (Hb) 11.6 g/dL (12.0-16.0); O2 Tension (PaO2), arterial 161.1 mmHg (80.0-100.0); Potassium - ABG Lab 3.63 mmol/L (3.70-5.30); pH, Arterial 7.532 (7.35-7.45)
[2022-12-15 01:02] LABS: #Basophils 0.1 thou/uL (0.0-0.2); #Eosinphils 0.2 thou/uL (0.0-0.7); #Monocytes 0.7 thou/uL (0.11-0.59); #Neutrophils 7.3 thou/uL (1.40-6.50); %Basophils 0.6 % (0.0-1.0); %Lymphocytes 17.7 % (21.0-51.0); %Monocytes 6.9 % (0.0-10.0); %Neutrophils 71.6 % (42.0-75.0); Hematocrit 30.3 % (36.0-47.0); Hemoglobin 9.7 g/dL (12.0-16.0); Mean Corpuscular Hemoglobin 28.7 pg (27.0-31.0); Mean Corpuscular Volume 89.6 fl (78.0-98.0); Mean Platelet Volume 8.9 fL (7.4-10.4); Platelet Count 654 10x3/uL (130-400); RBC Distribution Width 13.2 % (11.5-14.5); Red Blood Cell (RBC) Count 3.38 mill/uL (4.20-5.40); White Blood Cell (WBC) Count 10.2 10x3/uL (4.8-10.8)
[2022-12-15 01:03] LABS: ALV-art Gradient 153.025 mmHg (0-20); Puncture Site LRA
[2022-12-15 01:19] LABS: Lactic Acid 2.4 mmol/L (0.5-2.2)
[2022-12-15 01:21] LABS: ALT (SGPT) 38 U/L (8-55); AST (SGOT) 17 U/L (5-34); Albumin 3.1 g/dL (3.5-5.0); Alkaline Phosphatase 339 U/L (40-110); Anion Gap 14 mmol/L (10-20); BUN (Urea Nitrogen) 10 mg/dL (7.0-18.7); Bilirubin, Total 0.2 mg/dL (0.2-1.2); Calc. Creatinine Clearance 80 mL/min (70-130); Calcium 8.6 mg/dL (7.8-10.44); Carbon Dioxide 26 mmol/L (22-29); Chloride 100 mmol/L (98-107); Estimated GFR 117; Globulin 4.1 g/dL (2.4-3.5); Glucose 252 mg/dL (70-105); Magnesium 2.2 mg/dL (1.6-2.6); Potassium 3.7 mmol/L (3.5-5.1); Protein, Total 7.2 g/dL (6.0-8.3); Sodium 136 mmol/L (136-145)
[2022-12-15] MEDS ORDERED: Sodium Chloride 0.9% 1,000 ML IV SCH (02:17)
[2022-12-15 04:15] LABS: Bacteria/HPF None Seen HPF (None Seen); Bilirubin Negative (Negative); Blood, Urine Negative (Negative); Clarity Clear (Clear); Glucose, Urine (Dipstick) 300 mg/dL (Negative); Ketone, Urine Negative (Negative); Leukocyte 75 Leu/uL (Negative); Nitrite Negative (Negative); Protein, Urine (Dipstick) Negative (Neg-Trace); RBC/HPF 0-3 HPF (0-3); Specific Gravity, Urine 1.009 (1.002-1.036); Squamous Epithelial 0-3 HPF (0-3); Urobilinogen Normal mg/dL (Less than 2); WBC/HPF 21-50 HPF (0-3)
[2022-12-15 04:15] LABS: #Basophils 0.1 thou/uL (0.0-0.2); #Eosinphils 0.2 thou/uL (0.0-0.7); #Monocytes 0.6 thou/uL (0.11-0.59); #Neutrophils 6.3 thou/uL (1.40-6.50); %Basophils 0.6 % (0.0-1.0); %Eosinophils 2.2 % (0.0-10.0); %Lymphocytes 17.6 % (21.0-51.0); %Monocytes 7.3 % (0.0-10.0); %Neutrophils 70.9 % (42.0-75.0); Hematocrit 26.9 % (36.0-47.0); Hemoglobin 8.5 g/dL (12.0-16.0); Mean Corpuscular HGB CONC 31.6 g/dL (32.0-36.0); Mean Corpuscular Hemoglobin 28.2 pg (27.0-31.0); Mean Corpuscular Volume 89.4 fl (78.0-98.0); Platelet Count 605 10x3/uL (130-400); RBC Distribution Width 13.2 % (11.5-14.5); Red Blood Cell (RBC) Count 3.01 mill/uL (4.20-5.40); White Blood Cell (WBC) Count 8.8 10x3/uL (4.8-10.8)
[2022-12-15 04:32] LABS: Lactic Acid 1.7 mmol/L (0.5-2.2)
[2022-12-15 04:38] LABS: ALT (SGPT) 32 U/L (8-55); AST (SGOT) 14 U/L (5-34); Albumin 2.8 g/dL (3.5-5.0); Alkaline Phosphatase 305 U/L (40-110); Anion Gap 12 mmol/L (10-20); BUN (Urea Nitrogen) 9 mg/dL (7.0-18.7); Bilirubin, Total 0.2 mg/dL (0.2-1.2); Calc. Creatinine Clearance 89 mL/min (70-130); Calcium 8.4 mg/dL (7.8-10.44); Carbon Dioxide 26 mmol/L (22-29); Chloride 101 mmol/L (98-107); Estimated GFR 120; Globulin 3.5 g/dL (2.4-3.5); Glucose 283 mg/dL (70-105); Magnesium 2.1 mg/dL (1.6-2.6); Potassium 3.6 mmol/L (3.5-5.1); Protein, Total 6.3 g/dL (6.0-8.3); Sodium 135 mmol/L (136-145)
[2022-12-15] MEDS ORDERED: Lacosamide 200 MG in Sodium Chloride 0.9% 50 ML IVPB SCH (09:00)
[2022-12-15] MEDS ORDERED: OXcarbazepine 300 MG/5 ML UDCUP PER TUBE SCH (09:00)
[2022-12-15] MEDS ORDERED: levETIRAcetam 500 MG/5 ML VIAL SLOW IVP SCH (09:00)
[2022-12-15] MEDS: Pregabalin 50 MG CAP PO SCH (09:17)
[2022-12-15] MEDS: Pancrelipase DR 12,000 1 CAP PO SCH ×2 (09:17→12:53)
[2022-12-15] MEDS: Cholestyramine/Aspartame 4 gm Packet PO SCH (09:43)
[2022-12-15] MEDS: HumaLOG 300 UNITS/3 ML VIAL SC PRN (10:21)
[2022-12-15 13:39] VITALS: TEMP 98.5
== END 2022-12-15 14:45 | disposition short-term general hospital (02) | DRG 637 ==
LOC: CCU 08:09 → IMCU/EMU 16:43 → T4-A 12-09 18:33 → CCU 12-09 20:25 → 2NO 12-12 15:41 → CCU 12-15 00:24
PROVIDERS: ADMIT Hospitalist; ATTEND Internal Medicine Critical Care Medicine
PROC: 4A133R1 Monitoring of Arterial Saturation, Peripheral, Percutaneous Approach (ICD-10-PCS; 2022-12-09)
PROC: 0BH17EZ Insertion of Endotracheal Airway into Trachea, Via Natural or Artificial Opening (ICD-10-PCS; 2022-12-09)
PROC: 5A1945Z Respiratory Ventilation, 24-96 Consecutive Hours (ICD-10-PCS; 2022-12-09)
PROC: 5A09357 Assistance with Respiratory Ventilation, Less than 24 Consecutive Hours, Continuous Positive Airway Pressure (ICD-10-PCS; 2022-12-11)
PROC: 0BH17EZ Insertion of Endotracheal Airway into Trachea, Via Natural or Artificial Opening (ICD-10-PCS; principal; 2022-12-15)
PROC: 5A1935Z Respiratory Ventilation, Less than 24 Consecutive Hours (ICD-10-PCS; 2022-12-15)
DX: E10.10 Type 1 diabetes mellitus with ketoacidosis without coma (principal); E43 Unspecified severe protein-calorie malnutrition; J96.01 Acute respiratory failure with hypoxia; J69.0 Pneumonitis due to inhalation of food and vomit; G93.41 Metabolic encephalopathy; Z68.1 Body mass index [BMI] 19.9 or less, adult; N17.9 Acute kidney failure, unspecified; E87.1 Hypo-osmolality and hyponatremia; N39.0 Urinary tract infection, site not specified; K86.1 Other chronic pancreatitis; R74.01 Elevation of levels of liver transaminase levels; F12.10 Cannabis abuse, uncomplicated; E10.40 Type 1 diabetes mellitus with diabetic neuropathy, unspecified; G40.909 Epilepsy, unspecified, not intractable, without status epilepticus; E86.0 Dehydration; E87.6 Hypokalemia; E83.51 Hypocalcemia; E10.43 Type 1 diabetes mellitus with diabetic autonomic (poly)neuropathy; K31.84 Gastroparesis; E83.39 Other disorders of phosphorus metabolism; D63.8 Anemia in other chronic diseases classified elsewhere; Z88.6 Allergy status to analgesic agent; Z79.4 Long term (current) use of insulin; Z79.899 Other long term (current) drug therapy; Z88.0 Allergy status to penicillin; Z83.3 Family history of diabetes mellitus
CPT/HCPCS: 36415; 36416; 36600; 70450; 70460; 70496; 71045; 80048; 80053; 80177; 80183; 80306; 80307; 81001; 82010; 82140; 82550; 82805; 83036; 83605; 83690; 83735; 84100; 84146; 84443; 84703; 85025; 85027; 87086; 87389; 93306; 94002; 94003; 95711; 95712; 95819; 95957; C9113; C9254; J1200; J1650; J1815; J1885; J1953; J2060; J2405; J2543; J2704; J2765; J3030; J3475; J3480; J3490; J7050; J7070; Q9967

== ENCOUNTER 2024-02-07 00:36 | Inpatient (IN) | payer OTHER, SELFPAY ==
[2024-02-07 01:19] LABS: Calcium, Ionized (venous) 1.19 mmol/L (1.16-1.32); Chloride (VBG) 87 mmol/L (98-106); Hematocrit-VBG 43 % (36.0-47.0); Hemoglobin (Hb) 14.5 g/dL (11.7-15.5); Potassium (VBG) 5.56 mmol/L (3.70-5.30); Sodium 134 mmol/L (133-146); pH (venous) 7.233 (7.32-7.43)
[2024-02-07 01:20] LABS: #Basophils 0.11 10x3/uL (0.0-0.2); #Eosinophils Less than 0.03 10x3/uL (0.0-0.7); %Basophils 0.8 % (0.0-1.0); %Lymphocytes 6.1 % (21.0-51.0); %Monocytes 7.7 % (0.0-10.0); %Neutrophils 84.8 % (42.0-75.0); Hematocrit 43.5 % (36.0-47.0); Hemoglobin 13.6 g/dL (12.0-16.0); Mean Corpuscular HGB CONC 31.3 g/dL (32.0-36.0); Mean Corpuscular Hemoglobin 29.7 pg (27.0-31.0); Mean Platelet Volume 11.3 fL (7.4-10.4); Platelet Count 341 10x3/uL (130-400); RBC Distribution Width 14.2 % (11.5-14.5); Red Blood Cell (RBC) Count 4.58 mill/uL (4.20-5.40)
[2024-02-07 01:31] LABS: Phosphorus 5.7 mg/dL (2.3-4.7)
[2024-02-07 01:43] LABS: ALT (SGPT) 23 U/L (8-55); AST (SGOT) 14 U/L (5-34); Albumin 3.9 g/dL (3.5-5.0); Alkaline Phosphatase 243 U/L (40-110); Anion Gap 40 mmol/L (10-20); BUN (Urea Nitrogen) 29 mg/dL (7.0-18.7); Bilirubin, Total 0.5 mg/dL (0.2-1.2); Calc. Creatinine Clearance 0 mL/min (70-130); Calcium 9.4 mg/dL (7.8-10.44); Carbon Dioxide Less than 8 mmol/L (22-29); Chloride 88 mmol/L (98-107); Estimated GFR 25; Globulin 4.3 g/dL (2.4-3.5); Glucose 930 mg/dL (70-105); Lipase 15 U/L (8-78); Magnesium 2.8 mg/dL (1.6-2.6); Potassium 5.3 mmol/L (3.5-5.1); Protein, Total 8.2 g/dL (6.0-8.3); Sodium 129 mmol/L (136-145)
[2024-02-07 01:48] LABS: Acetaminophen Less than 10 mcg/mL (Less than 10); Alcohol Less than 10.0 mg/dL (Less than 10); Salicylate Less than 8.0 mg/dL (Less than 8.0)
[2024-02-07 01:54] LABS: Troponin I 0.012 ng/mL (< 0.028)
[2024-02-07] MEDS ORDERED: Insulin Regular, Human 100 UNIT/ML 10 ML VIAL ONE (02:36)
[2024-02-07] MEDS ORDERED: INSULIN REGULAR IN 0.9 % NACL 100 ML ONE (02:36)
[2024-02-07] MEDS ORDERED: Sodium Chloride 0.9% 1,000 ML IV PRN ×3 (04:02)
[2024-02-07] MEDS ORDERED: Dextrose 5 %-0.45 % NaCl 1,000 ML IV PRN (04:02)
[2024-02-07] MEDS ORDERED: NS 0.9% w/ 20 MEQ KCL 1,000 ML IV PRN (04:02)
[2024-02-07] MEDS ORDERED: Dextrose 50% Abboject 50 ML SYRINGE SLOW IVP PRN (04:02)
[2024-02-07] MEDS ORDERED: Electrolyte Replacement Protocol 1 EACH IVPB PRN (04:02)
[2024-02-07] MEDS ORDERED: Glucagon 1 MG/ML KIT IM PRN (04:03)
[2024-02-07] MEDS ORDERED: Dextrose 5% in Water 1,000 ML IV PRN (04:03)
[2024-02-07] MEDS ORDERED: Acetaminophen 650 MG Suppository PR PRN (04:04)
[2024-02-07] MEDS ORDERED: Ondansetron ODT 4 MG TAB PO PRN (04:04)
[2024-02-07] MEDS ORDERED: Ondansetron PF 4 MG/2 ML Vial IVP PRN (04:04)
[2024-02-07] MEDS ORDERED: INSULIN REGULAR IN 0.9 % NACL 100 ML IVPB SCH (04:15)
[2024-02-07 05:54] LABS: Hemoglobin A1c Greater than 14.0 % (4.0-6.0)
[2024-02-07 06:07] LABS: Anion Gap 35 mmol/L (10-20); BUN (Urea Nitrogen) 32 mg/dL (7.0-18.7); Calc. Creatinine Clearance 0 mL/min (70-130); Calcium 9.7 mg/dL (7.8-10.44); Carbon Dioxide 11 mmol/L (22-29); Chloride 93 mmol/L (98-107); Estimated GFR 25; Glucose 781 mg/dL (70-105); Potassium 3.8 mmol/L (3.5-5.1); Sodium 135 mmol/L (136-145)
[2024-02-07] MEDS: Sodium Chloride 0.9% 1,000 ML IV PRN (08:27)
[2024-02-07 08:36] VITALS: BMI 16.7
[2024-02-07 08:44] LABS: Critical Call Chemistry CCU.ADP
[2024-02-07 08:54] LABS: Anion Gap 25 mmol/L (10-20); BUN (Urea Nitrogen) 29 mg/dL (7.0-18.7); Calc. Creatinine Clearance 23 mL/min (70-130); Calcium 9.2 mg/dL (7.8-10.44); Carbon Dioxide 17 mmol/L (22-29); Chloride 101 mmol/L (98-107); Estimated GFR 31; Potassium 3.7 mmol/L (3.5-5.1); Sodium 139 mmol/L (136-145)
[2024-02-07 09:16] LABS: Glucose 519 mg/dL (70-105)
[2024-02-07] MEDS: NS 0.9% w/ 20 MEQ KCL 1,000 ML IV PRN (09:48)
[2024-02-07] MEDS: Famotidine/PF 20 mg/2ml Vial SLOW IVP SCH (09:49)
[2024-02-07] MEDS: Famotidine 20 MG TAB PO SCH (09:49)
[2024-02-07] MEDS: Acetaminophen 325 MG TAB PO SCH (10:05)
[2024-02-07] MEDS: D5 1/2 NS w/20 mEq KCL 1,000 ML IV PRN (11:45)
[2024-02-07 12:54] LABS: Anion Gap 13 mmol/L (10-20); BUN (Urea Nitrogen) 23 mg/dL (7.0-18.7); Calc. Creatinine Clearance 36 mL/min (70-130); Calcium 7.8 mg/dL (7.8-10.44); Carbon Dioxide 21 mmol/L (22-29); Chloride 114 mmol/L (98-107); Estimated GFR 54; Glucose 258 mg/dL (70-105); Potassium 3.9 mmol/L (3.5-5.1); Sodium 144 mmol/L (136-145)
[2024-02-07 19:11] LABS: Anion Gap 13 mmol/L (10-20); BUN (Urea Nitrogen) 17 mg/dL (7.0-18.7); Calc. Creatinine Clearance 39 mL/min (70-130); Calcium 7.6 mg/dL (7.8-10.44); Carbon Dioxide 18 mmol/L (22-29); Chloride 114 mmol/L (98-107); Estimated GFR 58; Glucose 285 mg/dL (70-105); Potassium 4.7 mmol/L (3.5-5.1); Sodium 140 mmol/L (136-145)
[2024-02-07] MEDS: levETIRAcetam 500 MG (5 mL) VIAL SLOW IVP SCH (20:56)
[2024-02-07 23:45] LABS: Amphetamine Not Detected (NotDetected); Barbiturates Screen Not Detected (NotDetected); Benzodiazepine Screen Not Detected (NotDetected); Cocaine Metabolite Screen Detected (NotDetected); Methadone Not Detected (NotDetected); Methamphetamine Not Detected (NotDetected); Opiate Screen Not Detected (NotDetected); Oxycodone Screen Not Detected (NotDetected); Phencyclidine (PCP) Not Detected (NotDetected); THC/Cannabinoid Screen Detected (NotDetected); Tricyclic Screen Not Detected (NotDetected)
[2024-02-08 01:58] LABS: #Basophils 0.05 10x3/uL (0.0-0.2); %Basophils 0.5 % (0.0-1.0); %Eosinophils 2.8 % (0.0-10.0); %Lymphocytes 16.5 % (21.0-51.0); %Neutrophils 68.8 % (42.0-75.0); Hematocrit 31.3 % (36.0-47.0); Hemoglobin 10.4 g/dL (12.0-16.0); Mean Corpuscular HGB CONC 33.2 g/dL (32.0-36.0); Mean Corpuscular Volume 90.2 fL (78.0-98.0); Platelet Count 223 10x3/uL (130-400); RBC Distribution Width 14.5 % (11.5-14.5); Red Blood Cell (RBC) Count 3.47 mill/uL (4.20-5.40)
[2024-02-08 02:22] LABS: Anion Gap 12 mmol/L (10-20); BUN (Urea Nitrogen) 12 mg/dL (7.0-18.7); Calc. Creatinine Clearance 59 mL/min (70-130); Calcium 7.8 mg/dL (7.8-10.44); Carbon Dioxide 18 mmol/L (22-29); Chloride 112 mmol/L (98-107); Estimated GFR 97; Glucose 118 mg/dL (70-105); Potassium 3.9 mmol/L (3.5-5.1); Sodium 138 mmol/L (136-145)
[2024-02-08] MEDS: Sodium Chloride 0.9% 1,000 ML IV SCH ×2 (03:20→17:48)
[2024-02-08] MEDS: Insulin Lispro 100 UNIT/ML 10 ML VIAL SC PRN ×2 (04:10→21:09)
[2024-02-08 14:53] VITALS: BMI 16.7
[2024-02-09 06:00] LABS: #Basophils 0.05 10x3/uL (0.0-0.2); %Basophils 0.8 % (0.0-1.0); %Eosinophils 3.4 % (0.0-10.0); %Lymphocytes 26.7 % (21.0-51.0); %Monocytes 9.6 % (0.0-10.0); %Neutrophils 59.3 % (42.0-75.0); Hemoglobin 10.4 g/dL (12.0-16.0); Mean Corpuscular HGB CONC 32.5 g/dL (32.0-36.0); Mean Corpuscular Hemoglobin 29.1 pg (27.0-31.0); Mean Corpuscular Volume 89.6 fL (78.0-98.0); Mean Platelet Volume 11.3 fL (7.4-10.4); Platelet Count 195 10x3/uL (130-400); RBC Distribution Width 13.8 % (11.5-14.5); Red Blood Cell (RBC) Count 3.57 mill/uL (4.20-5.40)
[2024-02-09 06:13] LABS: ALT (SGPT) 19 U/L (8-55); AST (SGOT) 24 U/L (5-34); Albumin 2.5 g/dL (3.5-5.0); Alkaline Phosphatase 154 U/L (40-110); Anion Gap 10 mmol/L (10-20); BUN (Urea Nitrogen) 6 mg/dL (7.0-18.7); Bilirubin, Total 0.2 mg/dL (0.2-1.2); Calc. Creatinine Clearance 70 mL/min (70-130); Carbon Dioxide 22 mmol/L (22-29); Chloride 108 mmol/L (98-107); Estimated GFR 115; Globulin 2.8 g/dL (2.4-3.5); Glucose 314 mg/dL (70-105); Potassium 3.6 mmol/L (3.5-5.1); Protein, Total 5.3 g/dL (6.0-8.3); Sodium 136 mmol/L (136-145)
[2024-02-09] MEDS: Famotidine/PF 20 mg/2ml Vial SLOW IVP SCH (08:17)
[2024-02-09] MEDS: Famotidine 20 MG TAB PO SCH (08:18)
[2024-02-09 08:20] VITALS: BP 106/73; TEMP 98.1
[2024-02-09 08:47] LABS: Actual Bicarbonate (HCO3v) 8.2 mEq/L (22-28)
== END 2024-02-09 13:15 | disposition home or self-care (01) | DRG 637 ==
LOC: ERS 00:36 → ERHOLD 04:09 → CCU 08:03 → T4-A 02-08 17:28
PROVIDERS: ADMIT Student in an Organized Health Care Education/Training Program; ATTEND Internal Medicine
PROC: 4A00X4Z Measurement of Central Nervous Electrical Activity, External Approach (ICD-10-PCS; principal; 2024-02-07)
DX: E10.10 Type 1 diabetes mellitus with ketoacidosis without coma (principal); E43 Unspecified severe protein-calorie malnutrition; K86.1 Other chronic pancreatitis; N17.9 Acute kidney failure, unspecified; Z68.1 Body mass index [BMI] 19.9 or less, adult; Z88.8 Allergy status to other drugs, medicaments and biological substances; J45.909 Unspecified asthma, uncomplicated; Z90.89 Acquired absence of other organs; Z98.890 Other specified postprocedural states; Z82.49 Family history of ischemic heart disease and other diseases of the circulatory system; Z79.899 Other long term (current) drug therapy; E10.65 Type 1 diabetes mellitus with hyperglycemia; G40.909 Epilepsy, unspecified, not intractable, without status epilepticus; Z79.4 Long term (current) use of insulin
CPT/HCPCS: 36415; 36416; 51701; 70450; 71045; 80048; 80053; 80306; 80307; 82010; 82805; 83036; 83690; 83735; 84100; 84484; 85025; 93005; 94760; 96374; J1815; J1953; J3480; J3490; J7030